=== PATIENT | male | born 1945 | race Caucasian/White ===

== ENCOUNTER → 2017-02-21 | Outpatient (CLI) | payer MEDICARE ==
[~2017-02-21] MED LIST: CIPRO500 MG PO; CIPROFLOXACIN500 MG PO; FLOMAX0.4 MG PO; LOPID600 MG PO; NORTRIPTYLINE50 MG PO; PERCOCET 325 MG1 TA2 PO; PRAVACHOL20 MG PO; PYRIDIUM200 MG PO
[2017-02-21 08:40] LABS: BASO # 0.1 10*3/uL (0.0-0.1); BASO % 1.2 % (0.0-1.0); EOS # 0.3 10*3/uL (0.0-0.4); EOS % 5.1 % (1.0-4.0); HEMATOCRIT 41.8 % (42.0-52.0); HEMOGLOBIN 14.4 g/dl (14.0-18.0); LYMPH # 1.7 10*3/uL (1.3-4.4); LYMPH % 33.4 % (27.0-41.0); MEAN CELL VOLUME 87.8 fl (80.0-94.0); MEAN CORPUSCULAR HGB 30.3 pg (27.0-31.0); MEAN CORPUSCULAR HGB CONC 34.4 g/dl (33.0-37.0); MEAN PLATELET VOLUME 9.5 fl (9.6-12.3); MONO # 0.4 10*3/uL (0.1-1.0); MONO % 8.4 % (3.0-9.0); NEUT # 2.6 10*3/uL (2.3-7.9); NEUT % 51.7 % (47.0-73.0); PLATELET COUNT AUTOMATED 173 10*3/uL (130-400); RED BLOOD COUNT 4.76 10*6/uL (4.50-5.90); RED CELL DISTRI WIDTH 12.9 % (0-14.5); WHITE BLOOD COUNT 5.1 10*3/uL (4.8-10.8)
[2017-02-21 08:47] LABS: HEMOGLOBIN A1c 5.8 % (4.8-5.6)
[2017-02-21 09:27] LABS: ALBUMIN 4.1 gm/dl (3.1-4.5); ALKALINE PHOSPHATASE 66 U/L (45-117); BILIRUBIN, DIRECT 0.2 mg/dL (0.0-0.2); BILIRUBIN, TOTAL 0.8 mg/dl (0.2-1.0); BUN 20 mg/dl (7-24); CHOLESTEROL 169 mg/dL (<200); EST GLOM FILT AFRICAN AMERICAN > 60 ml/min; FREE T4 0.72 ng/dl (0.76-1.46); GLUCOSE 99 mg/dL (65-99); HDL CHOLESTEROL 42 mg/dl (40-60); LDL CHOLESTEROL 97 mg/dL (9-159); SGOT/AST 20 IU/L (3-35); SGPT/ALT 22 U/L (12-78); TOTAL PROTEIN 7.5 gm/dL (6.4-8.2); TRIGLYCERIDES 150 mg/dl (<150); VLDL CHOLESTEROL 30 mg/dL (6-40)
== END | disposition home or self-care (01) ==
LOC: LAB 08:00
PROVIDERS: Internal Medicine
DX: K76.0 Fatty (change of) liver, not elsewhere classified (principal); E03.8 Other specified hypothyroidism; E78.4 Other hyperlipidemia; D72.829 Elevated white blood cell count, unspecified; R35.1 Nocturia; E55.9 Vitamin D deficiency, unspecified; R73.02 Impaired glucose tolerance (oral); Z79.1 Long term (current) use of non-steroidal anti-inflammatories (NSAID)

== ENCOUNTER → 2017-04-12 | Outpatient (CLI) | payer MEDICARE ==
[2017-04-12 10:52] LABS: BASO # 0.1 10*3/uL (0.0-0.1); BASO % 1.6 % (0.0-1.0); EOS # 0.3 10*3/uL (0.0-0.4); EOS % 5.5 % (1.0-4.0); HEMATOCRIT 42.2 % (42.0-52.0); HEMOGLOBIN 14.3 g/dl (14.0-18.0); LYMPH # 1.6 10*3/uL (1.3-4.4); LYMPH % 32.9 % (27.0-41.0); MEAN CELL VOLUME 88.3 fl (80.0-94.0); MEAN CORPUSCULAR HGB 29.9 pg (27.0-31.0); MEAN CORPUSCULAR HGB CONC 33.9 g/dl (33.0-37.0); MEAN PLATELET VOLUME 9.1 fl (9.6-12.3); MONO # 0.5 10*3/uL (0.1-1.0); MONO % 9.1 % (3.0-9.0); NEUT # 2.5 10*3/uL (2.3-7.9); NEUT % 50.7 % (47.0-73.0); PLATELET COUNT AUTOMATED 179 10*3/uL (130-400); RED BLOOD COUNT 4.78 10*6/uL (4.50-5.90)
[2017-04-12 11:28] LABS: FREE T4 0.93 ng/dl (0.76-1.46)
[2017-04-12 11:33] LABS: THYROID STIM HORMONE (HS) 0.784 uIU/ml (0.358-4.75)
== END | disposition home or self-care (01) ==
LOC: LAB 10:35
PROVIDERS: Internal Medicine
DX: E03.8 Other specified hypothyroidism (principal); D51.9 Vitamin B12 deficiency anemia, unspecified

== ENCOUNTER → 2017-08-21 | Outpatient (CLI) | payer MEDICARE | END | disposition home or self-care (01) | LOC: MRI 01:15 | DX: S83.242A Other tear of medial meniscus, current injury, left knee, initial encounter (principal); S83.412A Sprain of medial collateral ligament of left knee, initial encounter; X58.XXXA Exposure to other specified factors, initial encounter; Y93.89 Activity, other specified; Y92.89 Other specified places as the place of occurrence of the external cause; Y99.8 Other external cause status ==

== ENCOUNTER → 2017-09-13 | Outpatient (CLI) | payer MEDICARE ==
[2017-09-13 08:23] LABS: ALBUMIN 3.9 gm/dl (3.1-4.5); ALKALINE PHOSPHATASE 64 U/L (45-117); BILIRUBIN, DIRECT 0.2 mg/dL (0.0-0.2); BUN 17 mg/dl (7-24); CHOLESTEROL 160 mg/dL (<200); CREATININE 0.97 mg/dL (0.70-1.30); FREE T4 0.98 ng/dl (0.76-1.46); HDL CHOLESTEROL 46 mg/dl (40-60); LDL CHOLESTEROL 73 mg/dL (9-159); SGOT/AST 18 IU/L (3-35); SGPT/ALT 30 U/L (12-78); TOTAL PROTEIN 7.3 gm/dL (6.4-8.2); TRIGLYCERIDES 204 mg/dl (<150); VLDL CHOLESTEROL 41 mg/dL (6-40)
[2017-09-13 08:37] LABS: BASO # 0.1 10*3/uL (0.0-0.1); BASO % 1.3 % (0.0-1.0); EOS # 0.3 10*3/uL (0.0-0.4); EOS % 5.1 % (1.0-4.0); HEMATOCRIT 44.6 % (42.0-52.0); HEMOGLOBIN 15.2 g/dl (14.0-18.0); LYMPH # 2.2 10*3/uL (1.3-4.4); LYMPH % 41.6 % (27.0-41.0); MEAN CORPUSCULAR HGB 30.3 pg (27.0-31.0); MEAN CORPUSCULAR HGB CONC 34.1 g/dl (33.0-37.0); MEAN PLATELET VOLUME 9.4 fl (9.6-12.3); MONO # 0.5 10*3/uL (0.1-1.0); MONO % 9.6 % (3.0-9.0); NEUT # 2.3 10*3/uL (2.3-7.9); PLATELET COUNT AUTOMATED 186 10*3/uL (130-400); RED BLOOD COUNT 5.01 10*6/uL (4.50-5.90); RED CELL DISTRI WIDTH 13.2 % (0-14.5); WHITE BLOOD COUNT 5.3 10*3/uL (4.8-10.8)
== END | disposition home or self-care (01) ==
LOC: LAB 01:21
PROVIDERS: Internal Medicine
DX: E78.4 Other hyperlipidemia (principal); D50.9 Iron deficiency anemia, unspecified; E03.8 Other specified hypothyroidism; K76.0 Fatty (change of) liver, not elsewhere classified; R73.02 Impaired glucose tolerance (oral); E55.9 Vitamin D deficiency, unspecified; Z79.899 Other long term (current) drug therapy; Z79.1 Long term (current) use of non-steroidal anti-inflammatories (NSAID)

== ENCOUNTER 2017-12-16 09:54 | Emergency (ER) | payer MEDICARE ==
[~2017-12-16] VITALS: Ht 180.3 cm; Wt 79.4 kg
[2017-12-16 09:57] VITALS: BP 116/75
[2017-12-16] MEDS ORDERED: HYDROCODONE-AC1 EACH PO (10:00)
[2017-12-16 10:29] LABS: BASO % 0.7 % (0.0-1.0); EOS % 0.2 % (1.0-4.0); HEMATOCRIT 40.4 % (42.0-52.0); HEMOGLOBIN 13.5 g/dl (14.0-18.0); LYMPH # 0.8 10*3/uL (1.3-4.4); LYMPH % 18.3 % (27.0-41.0); MEAN CELL VOLUME 89.8 fl (80.0-94.0); MEAN CORPUSCULAR HGB CONC 33.4 g/dl (33.0-37.0); MEAN PLATELET VOLUME 8.8 fl (9.6-12.3); MONO # 0.7 10*3/uL (0.1-1.0); MONO % 16.9 % (3.0-9.0); NEUT # 2.7 10*3/uL (2.3-7.9); NEUT % 63.7 % (47.0-73.0); PLATELET COUNT AUTOMATED 125 10*3/uL (130-400); RED CELL DISTRI WIDTH 13.2 % (0-14.5); WHITE BLOOD COUNT 4.3 10*3/uL (4.8-10.8)
[2017-12-16 10:47] LABS: ALBUMIN 3.9 gm/dl (3.1-4.5); ALKALINE PHOSPHATASE 59 U/L (45-117); BUN 19 mg/dl (7-24); CHLORIDE 104 mmol/L (98-107); CREATININE 0.99 mg/dL (0.70-1.30); POTASSIUM 3.8 mmol/L (3.5-5.1); SGOT/AST 43 IU/L (3-35); SGPT/ALT 45 U/L (12-78); SODIUM 139 mmol/L (136-145); TOTAL PROTEIN 7.2 gm/dL (6.4-8.2)
[2017-12-16] MEDS ORDERED: TAMIFLU 75MG CA75 MG PO (11:07)
== END 2017-12-16 11:20 | disposition home or self-care (01) ==
LOC: ED 09:54
PROVIDERS: Student in an Organized Health Care Education/Training Program
DX: J11.1 Influenza due to unidentified influenza virus with other respiratory manifestations (principal); Z79.899 Other long term (current) drug therapy

== ENCOUNTER → 2018-06-18 | Outpatient (CLI) | payer MEDICARE ==
[~2018-06-18] MED LIST changes: +HYDROCODONE-AC1 EACH PO; +TAMIFLU 75MG CA75 MG PO
== END | disposition home or self-care (01) ==
LOC: RAD 11:35
DX: M54.2 Cervicalgia (principal); M19.90 Unspecified osteoarthritis, unspecified site

== ENCOUNTER → 2018-10-04 | Day surgery (SDC) | payer MEDICARE | END | disposition home or self-care (01) | LOC: SDC 10-01 11:00 | DX: K92.2 Gastrointestinal hemorrhage, unspecified (principal); Z53.8 Procedure and treatment not carried out for other reasons ==

== ENCOUNTER → 2019-07-31 | Outpatient (CLI) | payer MEDICARE | END | disposition home or self-care (01) | LOC: US 10:30 | DX: K76.0 Fatty (change of) liver, not elsewhere classified (principal) ==

== ENCOUNTER → 2019-09-27 | Outpatient (CLI) | payer MEDICARE | END | disposition home or self-care (01) | LOC: NM 09-11 07:00 | DX: R10.13 Epigastric pain (principal) ==

== ENCOUNTER → 2021-08-06 | Day surgery (SDC) | payer MEDICARE ==
[~2021-08-06] VITALS: Ht 177.8 cm; Wt 89.4 kg
[~2021-08-06] MED LIST changes: +FISH OIL 1,2001 EAC5 PO; +MAGNESIUM250 M1 PO; +PROTONIX40 MG PO
[2021-08-06 07:58] VITALS: BP 140/88
[2021-08-06 09:30] VITALS: BP 105/77
[2021-08-06 09:45] VITALS: BP 120/84
[2021-08-06 10:00] VITALS: BP 116/89
== END | disposition home or self-care (01) ==
LOC: SDC 08-03 08:00
PROVIDERS: ATTEND Surgery
DX: K59.00 Constipation, unspecified (principal); K57.30 Diverticulosis of large intestine without perforation or abscess without bleeding; K29.51 Unspecified chronic gastritis with bleeding; K20.90 Esophagitis, unspecified without bleeding; I10 Essential (primary) hypertension; F32.9 Major depressive disorder, single episode, unspecified; E03.9 Hypothyroidism, unspecified; E78.5 Hyperlipidemia, unspecified; G47.00 Insomnia, unspecified; Z87.891 Personal history of nicotine dependence; Z79.899 Other long term (current) drug therapy; Z20.822 Contact with and (suspected) exposure to COVID-19

== ENCOUNTER 2022-04-23 14:47 | Emergency (ER) | payer MEDICARE ==
[~2022-04-23] VITALS: Wt 89.4 kg
[~2022-04-23 14:47] MED LIST changes: +FINASTERIDE5 M1 PO; +MECLIZINE HYD12.5 MG PO; +PERCOCET 10-321 EACH PO; +ZOLPIDEM TART5 MG PO
[2022-04-23 14:52] VITALS: BP 123/75
[2022-04-23 15:13] LABS: BASO % 0.6 % (0.0-1.0); EOS # 0.1 10*3/uL (0.0-0.4); EOS % 0.8 % (1.0-4.0); HEMATOCRIT 42.1 % (42.0-52.0); LYMPH # 1.1 10*3/uL (1.3-4.4); MEAN CELL VOLUME 87.9 fl (80.0-94.0); MEAN CORPUSCULAR HGB 30.9 pg (27.0-31.0); MEAN CORPUSCULAR HGB CONC 35.2 g/dl (33.0-37.0); MEAN PLATELET VOLUME 9.4 fl (9.6-12.3); MONO # 0.3 10*3/uL (0.1-1.0); MONO % 4.6 % (3.0-9.0); NEUT # 5.6 10*3/uL (2.3-7.9); NEUT % 78.9 % (47.0-73.0); PLATELET COUNT AUTOMATED 162 10*3/uL (130-400); RED BLOOD COUNT 4.79 10*6/uL (4.50-5.90); RED CELL DISTRI WIDTH 13.2 % (0-14.5); WHITE BLOOD COUNT 7.1 10*3/uL (4.8-10.8)
[2022-04-23 15:30] LABS: ACT PARTIAL THROMBO TIME 29.1 SECONDS (20.0-32.1); INTERNATIONAL NORM RATIO 1.1 (2.0-3.5)
[2022-04-23 15:33] LABS: ALKALINE PHOSPHATASE 65 U/L (45-117); BUN 14 mg/dl (7-24); CHLORIDE 106 mmol/L (98-107); CREATININE 0.78 mg/dL (0.70-1.30); LIPASE 61 U/L (73-393); POTASSIUM 3.7 mmol/L (3.5-5.1); SGOT/AST 19 IU/L (3-35); SGPT/ALT 25 U/L (12-78); SODIUM 141 mmol/L (136-145)
[2022-04-23 18:09] LABS: HEMATOCRIT 43.6 % (42.0-52.0)
[2022-04-23] MEDS ORDERED: ONDANSETRON HYDR4 M1 PO (18:31)
[2022-04-23] MEDS ORDERED: PRILOSEC20 M1 PO (18:31)
== END 2022-04-23 18:35 | disposition home or self-care (01) ==
LOC: ED 14:47
PROVIDERS: Emergency Medicine
DX: K29.70 Gastritis, unspecified, without bleeding (principal); R11.2 Nausea with vomiting, unspecified; Z88.8 Allergy status to other drugs, medicaments and biological substances; Z79.899 Other long term (current) drug therapy; Z85.46 Personal history of malignant neoplasm of prostate; Z98.890 Other specified postprocedural states; Z87.891 Personal history of nicotine dependence

== ENCOUNTER → 2022-09-12 | Outpatient (CLI) | payer MEDICARE ==
[~2022-09-12] MED LIST changes: +ONDANSETRON HYDR4 M1 PO; +PRILOSEC20 M1 PO
== END | disposition home or self-care (01) ==
LOC: US 11:24
PROVIDERS: ATTEND Orthopaedic Surgery
DX: M79.661 Pain in right lower leg (principal)

== ENCOUNTER → 2022-11-25 | Outpatient (CLI) | payer MEDICARE | END | disposition home or self-care (01) | LOC: CARD 00:24 | PROVIDERS: ATTEND Physician Assistant | DX: R07.9 Chest pain, unspecified (principal) ==

== ENCOUNTER → 2023-02-10 | Outpatient (CLI) | payer MEDICARE | END | disposition home or self-care (01) | LOC: CT 01:04 | PROVIDERS: ATTEND Physician Assistant | DX: R91.1 Solitary pulmonary nodule (principal); R63.4 Abnormal weight loss; I25.10 Atherosclerotic heart disease of native coronary artery without angina pectoris; J98.4 Other disorders of lung; K76.0 Fatty (change of) liver, not elsewhere classified; N20.0 Calculus of kidney; N28.1 Cyst of kidney, acquired ==

== ENCOUNTER → 2023-09-20 | Outpatient (CLI) | payer MEDICARE | END | disposition home or self-care (01) | LOC: US 14:31 | PROVIDERS: ATTEND Physician Assistant | DX: I70.211 Atherosclerosis of native arteries of extremities with intermittent claudication, right leg (principal); M79.604 Pain in right leg ==

== ENCOUNTER → 2023-10-04 | Outpatient (CLI) | payer MEDICARE | END | disposition home or self-care (01) | LOC: US 01:14 | PROVIDERS: ATTEND Physician Assistant | DX: R91.1 Solitary pulmonary nodule (principal); M79.89 Other specified soft tissue disorders; M79.604 Pain in right leg; I25.10 Atherosclerotic heart disease of native coronary artery without angina pectoris; M47.815 Spondylosis without myelopathy or radiculopathy, thoracolumbar region ==

== ENCOUNTER → 2023-10-27 | Outpatient (CLI) | payer MEDICARE | END | disposition home or self-care (01) | LOC: US 02:50 | PROVIDERS: ATTEND Physician Assistant | DX: M79.604 Pain in right leg (principal); M79.89 Other specified soft tissue disorders ==

== ENCOUNTER → 2023-11-15 | Outpatient (CLI) | payer MEDICARE | LOC: CARD 03:19 | PROVIDERS: ATTEND Internal Medicine Cardiovascular Disease | DX: Z01.818 Encounter for other preprocedural examination (principal); I35.1 Nonrheumatic aortic (valve) insufficiency ==

== ENCOUNTER → 2024-03-19 | Outpatient (CLI) | payer MEDICARE ==
[~2024-03-19] MED LIST changes: +IOHEXOL 300 MG/ML 100 ML VIAL IV ONE
== END | disposition home or self-care (01) ==
LOC: CT 13:30
PROVIDERS: ATTEND Physician Assistant
DX: R91.1 Solitary pulmonary nodule (principal); I25.10 Atherosclerotic heart disease of native coronary artery without angina pectoris; K44.9 Diaphragmatic hernia without obstruction or gangrene; K76.0 Fatty (change of) liver, not elsewhere classified

== ENCOUNTER 2024-06-01 15:11 | Emergency (ER) | payer MEDICARE ==
[~2024-06-01] VITALS: Ht 177.8 cm; Wt 84.4 kg
[~2024-06-01 15:11] MED LIST changes: -IOHEXOL 300 MG/ML 100 ML VIAL IV ONE
[2024-06-01 15:18] VITALS: BP 134/73
[2024-06-01] MEDS ORDERED: SODIUM CHLORIDE 0.9% 1,000 ML IV ONE (15:20)
[2024-06-01 15:34] LABS: BASO % 0.8 % (0.0-1.0); EOS # 0.1 10*3/uL (0.0-0.4); EOS % 1.3 % (1.0-4.0); HEMATOCRIT 41.3 % (42.0-52.0); LYMPH # 1.3 10*3/uL (1.3-4.4); LYMPH % 26.5 % (27.0-41.0); MEAN CELL VOLUME 87.3 fl (80.0-94.0); MEAN CORPUSCULAR HGB CONC 34.4 g/dl (33.0-37.0); MEAN PLATELET VOLUME 9.1 fl (9.6-12.3); MONO # 0.4 10*3/uL (0.1-1.0); MONO % 8.2 % (3.0-9.0); PLATELET COUNT AUTOMATED 168 10*3/uL (130-400); RED BLOOD COUNT 4.73 10*6/uL (4.50-5.90); RED CELL DISTRI WIDTH 12.3 % (0-14.5); WHITE BLOOD COUNT 4.8 10*3/uL (4.8-10.8)
[2024-06-01 15:56] LABS: BUN 13 mg/dl (9-23); CHLORIDE 107 mmol/L (98-107); CPK 108 U/L (34-171); POTASSIUM 4.1 mmol/L (3.4-5.1)
[2024-06-01 16:06] LABS: BILIRUBIN Negative (Negative); BLOOD Negative (Negative); CLARITY Clear (Clear); COLOR Yellow (Yellow); GLUCOSE Negative (Negative); KETONE 1+ (Negative); LEUKO ESTERASE Negative (Negative); NITRITE Negative (Negative); SPECIFIC GRAVITY 1.015 (1.001-1.030)
[2024-06-01 16:17] LABS: WBC 0-2 wbc/hpf (0-5)
[2024-06-01] MEDS ORDERED: Ondansetron Hydrochloride 4 MG/2 ML VIAL IV ONE (17:20)
[2024-06-01] MEDS ORDERED: FAMOTIDINE 50 ML IV ONE (17:20)
[2024-06-01] MEDS ORDERED: TRAZODONE50 MG PO (18:18)
[2024-06-01] MEDS ORDERED: Ondansetron4 MG PO (18:18)
== END 2024-06-01 20:38 | disposition home or self-care (01) ==
LOC: ED 15:11
PROVIDERS: Emergency Medicine
DX: R53.1 Weakness (principal); Z20.822 Contact with and (suspected) exposure to COVID-19; G47.00 Insomnia, unspecified; R11.0 Nausea; E78.00 Pure hypercholesterolemia, unspecified; E78.5 Hyperlipidemia, unspecified; Z98.890 Other specified postprocedural states; Z87.891 Personal history of nicotine dependence

== ENCOUNTER → 2024-10-01 | Outpatient (CLI) | payer MEDICARE ==
[~2024-10-01] MED LIST changes: +Ondansetron4 MG PO; +TRAZODONE50 MG PO
[2024-10-01 09:40] LABS: MEAN CORPUSCULAR HGB 30.8 pg (27.0-31.0); MEAN CORPUSCULAR HGB CONC 34.7 g/dl (33.0-37.0); MEAN PLATELET VOLUME 8.9 fl (9.6-12.3); RED BLOOD COUNT 4.83 10*6/uL (4.50-5.90); RED CELL DISTRI WIDTH 13.1 % (0-14.5); WHITE BLOOD COUNT 5.9 10*3/uL (4.8-10.8)
[2024-10-01 10:07] LABS: BUN 15 mg/dl (9-23); CHLORIDE 107 mmol/L (98-107)
== END | disposition home or self-care (01) ==
LOC: LAB 09:10
PROVIDERS: ATTEND Physician Assistant
DX: N40.0 Benign prostatic hyperplasia without lower urinary tract symptoms (principal); R91.1 Solitary pulmonary nodule; M54.2 Cervicalgia; M19.90 Unspecified osteoarthritis, unspecified site; F51.01 Primary insomnia

== ENCOUNTER → 2024-10-04 | Outpatient (CLI) | payer MEDICARE ==
[~2024-10-04] MED LIST changes: +IOHEXOL 300 MG/ML 100 ML VIAL IV ONE; +IOHEXOL 300 MG/ML 100 ML VIAL ONE
== END | disposition home or self-care (01) ==
LOC: CT 00:50
PROVIDERS: ATTEND Physician Assistant
DX: R91.1 Solitary pulmonary nodule (principal); I25.10 Atherosclerotic heart disease of native coronary artery without angina pectoris; J98.4 Other disorders of lung

== ENCOUNTER → 2025-01-29 | Outpatient (CLI) | payer MEDICARE ==
[~2025-01-29] MED LIST changes: -IOHEXOL 300 MG/ML 100 ML VIAL IV ONE; -IOHEXOL 300 MG/ML 100 ML VIAL ONE
== END | disposition home or self-care (01) ==
LOC: CT 09:00 → NM 10:00 → CT 11:21
PROVIDERS: ATTEND Orthopaedic Surgery
DX: M47.26 Other spondylosis with radiculopathy, lumbar region (principal); M25.78 Osteophyte, vertebrae; M47.817 Spondylosis without myelopathy or radiculopathy, lumbosacral region; M48.061 Spinal stenosis, lumbar region without neurogenic claudication

== ENCOUNTER → 2025-02-04 | Outpatient (CLI) | payer MEDICARE ==
[~2025-02-04] MED LIST changes: +Technetium Tc 99M Medronate 1 KIT KIT IV SCH
== END | disposition home or self-care (01) ==
LOC: NM 01-29 10:00
PROVIDERS: ATTEND Orthopaedic Surgery
DX: M17.0 Bilateral primary osteoarthritis of knee (principal); M19.012 Primary osteoarthritis, left shoulder; M19.011 Primary osteoarthritis, right shoulder; M54.16 Radiculopathy, lumbar region